=== PATIENT | male | born 1990 | race American Indian/Alaskan Native ===

== ENCOUNTER 2023-07-19 17:57 | Emergency (ER) | payer MEDICAID, SELFPAY ==
[2023-07-19 17:58] VITALS: BP 118/78; PULSE 61; RESP 15; TEMP 37.4; O2SAT 99
--- NOTE | 2023-07-19 19:31 | ED.GENADUL_ITS ---
Discharge Plan Disposition Patient Disposition: Home Condition: Stable Discharge Details Clinical Impression: Tooth ache, Dental infection Primary Care Provider: [facility],Local ED Provider: Nabila Kuhn Home Meds and New Rx's Prescriptions: New clindamycin HCl 150 mg capsule 450 mg PO TID 10 Days Qty: 90 0RF Rx Instructions: Take 3 capsules 3 times daily by mouth for the next 10 days Discharge Instructions Instructions: Dental Abscess (ED), Toothache (ED) Additional Instructions: Please take the antibiotic as directed with yogurt or probiotic up to 3 times daily. Use the HurriCaine gel topical anesthetic as needed up to 3 times daily as well. Rinse your mouth out with warm salt water after eating or drinking anything. Please take Tylenol or Ibuprofen with food every 4-6 hours as needed for pain and swelling. Please follow-up with a dentist. Follow up with primary care provider in 3-5 days. Return to ED sooner if any worsening or concerns. Increase oral fluids. Discharge Data Discharge Date/Time-TO BE ENTERED AT DEPARTURE: 07/19/23 20:32 Medical Decision Making 32-year-old male presents to the ER with chief complaint of left lower jaw swelling and tooth pain which is worsened over the last 3 days. Patient has poor dentition he is a smoker. He reports that there was a pocket there that has decreased. No area of fluctuance or drainable abscess noted there is a blister noted to his left lower gum. Does have some receding gums surrounding teeth, multiple poor dentition and eroded teeth. He denies any chills, no trismus no problems swallowing no neck pain no chest pain shortness of breath. He did take some ibuprofen around 11:30 AM this morning. HurriCaine gel ordered, clindamycin due to Ancef allergy. Discharged with dental resources. HPI General Mode of arrival: ambulatory . Date/Time Provider Initiated Documentation: 07/19/23 19:24 . Limitations to Documentation: no limitations . Information obtained by: patient, RN notes reviewed and old records reviewed . HPI Narrative: 32-year-old male presents to the ER with chief complaint of left lower jaw swelling and tooth pain which is worsened over the last 3 days. Patient has poor dentition he is a smoker. He reports that there was a pocket there that has decreased. No area of fluctuance or drainable abscess noted there is a blister noted to his left lower gum. Does have some receding gums surrounding teeth, multiple poor dentition and eroded teeth. He denies any chills, no trismus no problems swallowing no neck pain no chest pain shortness of breath. He did take some ibuprofen around 11:30 AM this morning. Related Data Home Medications Medication Instructions Recorded Confirmed clindamycin HCl 150 mg capsule 450 mg PO TID Dental infection 10 07/19/23 days #90 caps Previous Rx's Medication Instructions Recorded clindamycin HCl 150 mg capsule 450 mg PO TID Dental infection 10 07/19/23 days #90 caps Allergies Allergy/AdvReac Type Severity Reaction Status Date / Time cefazolin [From [facility]] Allergy Mild Skin Rash Unverified 07/19/23 18:06 General Stated Complaint: DentalOral LANE: 4 Review of Systems ENT Ears, Nose, Mouth, and Throat: Reports as per HPI, Reports dental pain, Reports facial pain (left lower outer jaw swelling), Reports mouth lesions and Reports mouth pain PFSH All Active Problems (Updated 07/19/23 @ 19:40 by Nabila Kuhn NP) Tooth ache (Acute) Dental infection (Acute) Social History Smoking/Tobacco Use Status: Current every day Tobacco Type: cigarettes Smoking risk assessment performed?: Yes Alcohol Intake: never Substance use type: former substance user Exam [facility] Head images: 1. Swelling Teeth and gingiva: caries, gingiva abnormal (No drainable abscess noted) hypertrophic and receding and poor dentition Teeth image: 1. Receding gums and surrounding poor dentition and eroded teeth Resp Effort & Inspection: normal respiratory effort and able to speak in complete sentences Auscultation: clear to auscultation bilaterally Cardio Rate: regular rate Rhythm: regular rhythm Heart Sounds: S1 normal and S2 normal Course Vital Signs Vital signs: Vital Signs Temperature 37.4 C 07/19/23 17:58 Pulse 61 07/19/23 17:58 Respiratory Rate 15 07/19/23 17:58 Blood Pressure 118/78 07/19/23 17:58 Pulse Oximetry 99 07/19/23 17:58 Temperature 37.4 C 07/19/23 17:58 Temperature Source Temporal Artery Scan 07/19/23 17:58 Pulse 61 07/19/23 17:58 Respiratory Rate 15 07/19/23 17:58 Respiratory Effort Normal 07/19/23 18:04 Blood Pressure 118/78 07/19/23 17:58 Blood Pressure Position Sitting 07/19/23 17:58 Pulse Oximetry 99 07/19/23 17:58 Oxygen Delivery Method Room Air 07/19/23 17:58 Oxygen Flow Rate 0 07/19/23 17:58 Pain Level 3 07/19/23 17:58
[2023-07-19] MEDS: Clindamycin 150 MG CAP, 12 CAPS/BTL 450 MG PO (20:25)
[2023-07-19] MEDS: Clindamycin 150 MG CAP 450 MG PO (20:25)
[2023-07-19] MEDS: Benzocaine 20% Gel 30 GM JAR MM (20:25)
--- NOTE | 2023-07-22 14:52 | NUR.NOTE ---
Patient called asking about prescription and whether or not it was sent to the pharmacy. I looked it up and it was printed. I spoke with patient and explained that it would be a blue piece of paper that he needs to take to the pharmacy. Nursing Note:
== END 2023-07-19 20:32 | disposition home or self-care (01) ==
PROVIDERS: Emergency Provider Registered Nurse Emergency
DX: K08.89 Other specified disorders of teeth and supporting structures (principal); K02.9 Dental caries, unspecified; K04.7 Periapical abscess without sinus
CPT/HCPCS: 99283; 99282

== ENCOUNTER 2023-08-14 17:43 | Emergency (ER) | payer MEDICAID, SELFPAY ==
[2023-08-14 18:01] VITALS: BP 120/84; PULSE 67; RESP 18; TEMP 37; O2SAT 98
--- NOTE | 2023-08-14 18:36 | W.ED.GENAD ---
Discharge Plan Disposition Patient Disposition: Home Condition: Stable Discharge Details Clinical Impression: Dental infection Primary Care Provider: None,None ED Provider: Nuha An Home Meds and New Rx's Prescriptions: New clindamycin HCl [Cleocin HCl] 300 mg capsule 300 mg PO QID Qty: 28 0RF Discharge Instructions Instructions: Dental Abscess (ED) Additional Instructions: Continue brushing and flossing up to 3 times daily. You can do gargles with warm salt water (dissolve 1 tsp salt in 1 quart of warm water). Referrals: None,None [Primary Care Provider] - (See dentist) Discharge Data Discharge Date/Time-TO BE ENTERED AT DEPARTURE: 08/14/23 18:58 Medical Decision Making patient with allergy to cefazolin, previous good response to clindamycin. vitals stable and appropriate for outpatient antibiotics. HPI General Mode of arrival: ambulatory. Date/Time Provider Initiated Documentation: 08/14/23 18:04. Limitations to Documentation: no limitations. Information obtained by: patient. HPI Narrative: 32-year-old male patient who presents for evaluation of right lower dental pain most consistent with his history of dental infection. He has poor dentition with significant decay and missing teeth. He has had no fever no chills there is no erythema or swelling noted exteriorly He has not taken [id number] pain medication stating that he had no [place] with Related Data Home Medications Medication Instructions Recorded Confirmed clindamycin HCl 300 mg capsule 300 mg PO QID #28 caps 08/14/23 (Cleocin HCl) Previous Rx's Medication Instructions Recorded clindamycin HCl 300 mg capsule 300 mg PO QID #28 caps 08/14/23 (Cleocin HCl) Allergies Allergy/AdvReac Type Severity Reaction Status Date / Time cefazolin [From [facility]] Allergy Mild Skin Rash Unverified 07/19/23 18:06 General Stated Complaint: DentalOral LANE: 4 Review of Systems All systems reviewed & are unremarkable except as noted in HPI and below PFSH All Active Problems (Updated 08/14/23 @ 18:37 by Nuha An NP) Dental infection (Acute) Tooth ache (Acute) Social History Smoking/Tobacco Use Status: Current every day Tobacco Type: cigarettes Smoking risk assessment performed?: Yes Alcohol Intake: never Substance use type: former substance user Exam Const General: cooperative, disheveled and ill appearing chronically Nutritional Appearance: thin Orientation: alert, awake and oriented x3 HENMT Head: normal to inspection Mouth: oral mucosae normal Teeth and gingiva: poor dentition (decay, missing teeth, inflammation, no obvious drainable abscess noted) Course Vital Signs Vital signs: Vital Signs Temperature 37.0 C 08/14/23 18:01 Pulse 67 08/14/23 18:01 Respiratory Rate 18 08/14/23 18:01 Blood Pressure 120/84 08/14/23 18:01 Pulse Oximetry 98 08/14/23 18:01 Temperature 37.0 C 08/14/23 18:01 Temperature Source Skin 08/14/23 18:01 Pulse 67 08/14/23 18:01 Respiratory Rate 18 08/14/23 18:01 Respiratory Effort Normal 08/14/23 18:03 Blood Pressure 120/84 08/14/23 18:01 Blood Pressure Position Sitting 08/14/23 18:01 Pulse Oximetry 98 08/14/23 18:01 Oxygen Delivery Method Room Air 08/14/23 18:01 Oxygen Flow Rate 0 08/14/23 18:01
[2023-08-14 18:54] VITALS: PULSE 78; RESP 18; TEMP 36.7; O2SAT 98
[2023-08-14] MEDS: Ibuprofen 800 MG TAB PO (18:57)
[2023-08-14] MEDS: Acetaminophen 500 MG TAB 1000 MG PO (18:57)
[2023-08-14] MEDS: Clindamycin 150 MG CAP, 12 CAPS/BTL 300 MG PO (18:57)
== END 2023-08-14 18:58 | disposition home or self-care (01) ==
PROVIDERS: Emergency Provider Nurse Practitioner Acute Care
DX: R68.84 Jaw pain (principal)
CPT/HCPCS: 99283

== ENCOUNTER → 2024-01-15 02:50 | Outpatient (CLI) | payer MEDICAID, SELFPAY ==
--- NOTE | 2024-01-15 | DI.RAD_ITS ---
Exam(s) XR KNEE RT 3V AP,LAT,SIMONA EXAM: XR KNEE RT 3V AP,LAT,SIMONA CLINICAL HISTORY: M25.561 Pain in right knee. TECHNIQUE: 2D digital imaging was performed. COMPARISON: No exams were available for comparison FINDINGS: 3 views Evidence of acute fracture nor prominent joint effusion. No joint space narrowing. Bone density nor mal. No osseous lesions. IMPRESSION: No acute osseous findings in the right knee. There is a small amount of increased joint fluid seen o n the lateral view. DATA REPOSITORY: RADIATION DOSE DELIVERED:
--- NOTE | 2024-01-15 | DI.RAD_ITS ---
Exam(s) XR THORACIC SPINE COMPLETE EXAM: XR THORACIC SPINE COMPLETE CLINICAL HISTORY: M54.6 Pain in thoracic spine. TECHNIQUE: 2D digital imaging was performed. COMPARISON: No exams were available for comparison FINDINGS: 3 views No evidence of fracture, listhesis, nor disc space narrowing. No scoliosis. No abnormal widening of the paraspinal lines. Bone density normal. No osseous lesions seen. IMPRESSION: No significant radiograph findings on these three views of the thoracic spinal column. DATA REPOSITORY: RADIATION DOSE DELIVERED:
== END ==
PROVIDERS: PCP Student in an Organized Health Care Education/Training Program; Visit Provider Student in an Organized Health Care Education/Training Program
DX: M25.561 Pain in right knee (principal); M54.6 Pain in thoracic spine
CPT/HCPCS: 73562; 72072

== ENCOUNTER 2025-01-13 14:49 | Emergency (ER) | payer MEDICAID, SELFPAY ==
[2025-01-13 15:04] VITALS: BP 116/69; PULSE 84; RESP 15; TEMP 36.4; O2SAT 96
--- NOTE | 2025-01-13 15:15 | DI.RAD_ITS ---
Exam(s) XR FOOT LT COMPLETE EXAM: XR FOOT LT COMPLETE CLINICAL HISTORY: pain s/p fall 3 days ago. TECHNIQUE: 2D digital imaging was performed. COMPARISON: No exams were available for comparison FINDINGS: 3 views No evidence of fracture nor diastasis of the Lisfranc joint. Bone density is normal. No radiopaque foreign bodies. Great toe metatarsophalangeal joint appears unremarkable as do the other MTP joints and midfoot joints. No radiopaque foreign bodies. IMPRESSION: No acute osseous findings in the foot. DATA REPOSITORY: RADIATION DOSE DELIVERED:
--- NOTE | 2025-01-13 15:19 | ED.GENADUL_ITS ---
Discharge Plan Disposition Patient Disposition: Home Condition: Stable Discharge Details Clinical Impression: Left ankle sprain, Sprain of foot, left Primary Care Provider: Murali Gomez ED Provider: Daljit Gonzalez Home Meds and New Rx's Prescriptions: Continued bupropion HCl 100 mg tablet 300 mg PO DAILY Patient Comments: TAKE ONE TABLET BY MOUTH THREE TIMES A DAY Discharge Instructions Instructions: Ankle Sprain ED Additional Instructions: Your x-ray did not show any broken bones. If you not improving in a week follow-up with your primary care provider. You can take 1000 mg of acetaminophen and 600 mg of ibuprofen every 6 hours as needed. If you feel more ill or have severe worsening pain return to the emergency department for re evaluation HPI General Mode of arrival: ambulatory . Date/Time Provider Initiated Documentation: 01/13/25 14:58 . Limitations to Documentation: no limitations . Information obtained by: patient . History of Present Illness 34 year old M presents to the emergency department with the chief complaint of left ankle/foot pain, described as moderate, Quality is described as aching, and is localized to the left and lower extremity. Patient reports no radiation. Patient started experiencing this day(s) (3) and it has been constant. Rest improves symptom(s), Movement worsens symptoms . Patient notes no other symptoms.. Patient did receive the following treatments prior to arrival, none Related Data Home Medications ?Medication ?Instructions ?Recorded ?Confirmed bupropion HCl 100 mg tablet 300 mg PO DAILY 01/13/25 01/13/25 Allergies Allergy/AdvReac Type Severity Reaction Status Date / Time cefazolin (From [facility]) Allergy Mild Skin Rash Unverified 01/13/25 15:08 General Stated Complaint: Orthopedic LANE: 4 Review of Systems All systems reviewed & are unremarkable except as noted in HPI and below Constitutional Constitutional: Denies chills and Denies fever(s) Cardiovascular Cardiovascular: Denies chest pain and Denies dyspnea Respiratory Respiratory: Denies cough and Denies dyspnea Gastrointestinal Gastrointestinal: Denies abdominal pain, Denies nausea and Denies vomiting Musculoskeletal Musculoskeletal: Reports arthralgias Psychiatric Psychiatric: Denies depression Endocrine Endocrine: Denies heat intolerance Allergic/Immunologic Allergic/Immunologic: Denies urticaria Exam Const General: no acute distress Orientation: alert HENMT Head: normal to inspection Ears: external ears normal General nose exam: external nose normal Mouth: moist mucous membranes Eyes General: appearance normal, both eyes and all related structures Neck Neck: normal visual inspection Resp Effort & Inspection: normal respiratory effort and able to speak in complete sentences Cardio Rate: regular rate Skin General skin exam: no rashes or lesions noted Neuro General: patient alert and patient oriented x3 Extrem General: full ROM and capillary refill normal Psych Mental Status: mental status grossly normal Course Vital Signs Vital signs: Vital Signs Temperature 36.4 C 01/13/25 15:04 Pulse 84 01/13/25 15:04 Respiratory Rate 15 01/13/25 15:04 Blood Pressure 116/69 01/13/25 15:04 Pulse Oximetry 96 01/13/25 15:04 Temperature 36.4 C 01/13/25 15:04 Pulse 84 01/13/25 15:04 Respiratory Rate 15 01/13/25 15:04 Blood Pressure 116/69 01/13/25 15:04 Blood Pressure Position Sitting 01/13/25 15:04 Pulse Oximetry 96 01/13/25 15:04 Oxygen Delivery Method Room Air 01/13/25 15:04 Oxygen Flow Rate 0 01/13/25 15:04 Medical Decision Making 34-year-old male who denies any significant past medical history comes in with left ankle and foot pain. He says that on Friday he was getting out of bed and his daughters small trampoline was by the bedside and he did not notice and stepped on it and rolled his ankle. He did not hit his head or have loss of consciousness. He has lateral ankle and foot pain since. He is able to bear weight though with pain. There is swelling over the lateral malleolus. No other visible or palpable deformities. He has full range of motion of his ankle, intact sensation and pulses in the foot. No tenderness elsewhere in the leg and has no posterior ankle tenderness. I suspect ankle and foot sprain but will obtain x-rays to evaluate for fracture X-ray on my read and radiology read is negative for fractures. Patient is stable. Suspect sprain, will provide ankle stabilizer and advised to follow-up with either express care or his PCP if he still in pain in a week and return precautions given Differential Diagnosis Differential Diagnosis: Sprain, fracture Quality:SDOH Health Related Social Needs: No Data to Display PFSH All Active Problems (Updated 01/13/25 @ 16:22 by Daljit Gonzalez MD) Sprain of foot, left (Acute) Left ankle sprain (Acute) Social History Smoking/Tobacco Use Status: Current every day Tobacco Type: cigarettes Smoking risk assessment performed?: Yes Alcohol Intake: never Substance use type: former substance user
[2025-01-13] MEDS: Ibuprofen 600 MG TAB PO (15:33)
--- NOTE | 2025-01-13 16:01 | DI.RAD_ITS ---
Exam(s) XR ANKLE LT COMPLETE EXAM: XR ANKLE LT COMPLETE CLINICAL HISTORY: pain s/p fall 3 days ago. TECHNIQUE: 2D digital imaging was performed. COMPARISON: No exams were available for comparison FINDINGS: 3 views There is no evidence of fracture or widening the ankle mortise. Talar dome unremarkable. Mild soft tissue swelling noted laterally. Also posteriorly. IMPRESSION: Soft tissue swelling but no fractures. DATA REPOSITORY: RADIATION DOSE DELIVERED:
== END 2025-01-13 16:33 | disposition home or self-care (01) ==
PROVIDERS: Emergency Provider Emergency Medicine; PCP Student in an Organized Health Care Education/Training Program
DX: S93.402A Sprain of unspecified ligament of left ankle, initial encounter (principal); S93.602A Unspecified sprain of left foot, initial encounter; X50.1XXA Overexertion from prolonged static or awkward postures, initial encounter; Y93.89 Activity, other specified; Y92.013 Bedroom of single-family (private) house as the place of occurrence of the external cause; F17.210 Nicotine dependence, cigarettes, uncomplicated
CPT/HCPCS: 99283; 73610; 73630